=== PATIENT | female | born 1940 | race Caucasian/White ===

== ENCOUNTER 2024-11-12 15:17 | Day surgery (SDC) | payer MEDICARE ==
[2024-11-12] MEDS: IV FLUID CONTINUATION 1,000 ML IV ONE ×2 (15:35→16:31)
[2024-11-12] MEDS ORDERED: PROPOFOL 10 MG/ML 20 ML VIAL IV ONE (16:36)
--- NOTE | 2024-11-12 16:48 | P.PCN ---
Date of Procedure: 11/12/24 Procedure(s) Performed: BRIEF HISTORY: Patient is a 84-year-old, pleasant, white female scheduled for an upper endoscopy as a part of evaluation progressive dysphagia to solids for the last 1 month duration. She is not able to eat any solids for the last 1 week. She is in school for an upper endoscopy with a possible dilation today.. She lost 20 pounds in the last 1 month duration PROCEDURE PERFORMED: Esophagogastroduodenoscopy with biopsy. PREOPERATIVE DIAGNOSIS: Progressive dysphagia to solids and weight loss. IV sedation per anesthesia. PROCEDURE: After informed consent was obtained, the patient was brought into the endoscopy unit. IV sedation was administered by Anesthesia under continuous monitoring. Initially the Olympus GIF-140 video endoscope was inserted into the mouth. Esophagus intubated without any difficulty. It was gradually advanced into the distal esophagus. The GE junction appeared very tight and with gentle pressure I was able to advance the scope into the cardia of the stomach and immediately there was a 3 to 4 cm circumferential friable ulceration identified. Scope was then advanced into the distal stomach and duodenum and carefully examined. The bulb and the second part of the duodenum appeared normal. The scope at this time was withdrawn to the stomach, adequately insufflated with air, and upon careful examination, mucosa of the antrum, body, and the fundus appeared normal. The circumferential ulceration was located in the cardia of the stomach on retroflexion. The scope was then withdrawn into the esophagus. Multiple biopsies were done from the ulceration located in the cardia of the stomach. The GE junction was located at 39 cm from the incisors which appeared very tight. The esophagus appeared normal. There were no erosions or ulcerations seen and the patient tolerated the procedure well. IMPRESSION: 1. Large 4 cm circumferential ulceration involving the cardia of the stomach causing narrowing of the GE junction status post multiple biopsies to evaluate for malignancy. 2. Rest of the stomach and duodenum appeared normal. RECOMMENDATIONS: The findings of this examination were discussed with the patient as well as her family. She will follow-up with the biopsies aspiration to be seen in the office in 1 week..
[2024-11-12 18:08] LABS: Basophils # (A) 0.02 10*3/uL (0.00-0.10); Basophils % (A) 0.1 %; Eosinophils # (A) 0.03 10*3/uL (0.04-0.35); Eosinophils % (A) 0.2 %; HCT 36.3 % (37.2-46.3); HGB 12.5 g/dL (12.0-15.0); Lymphocytes # (A) 1.77 10*3/uL (0.90-5.00); Lymphocytes % (A) 12.4 %; MCHC 34.4 g/dL (32.0-37.0); MCV 87.3 fL (80.0-97.0); Mean Platelet Volume 10.4 fL (9.5-12.2); Monocytes # (A) 1.27 10*3/uL (0.20-1.00); Monocytes % (A) 8.9 %; Neutrophils # (A) 11.07 10*3/uL (1.80-7.70); Neutrophils % (A) 77.8 %; Platelet Count 307 10*3/uL (140-440); RBC 4.16 10*6/uL (4.10-5.20); RDW 14.5 % (11.5-14.5); WBC 14.24 10*3/uL (4.50-10.00)
[2024-11-12 18:22] LABS: ALT 13 U/L (4-34); AST 19 U/L (14-36); African American GFR (CKD) 30 (>60 ml/min/1.73 sqM); Albumin 3.2 g/dL (3.5-5.0); Alkaline Phosphatase 104 U/L (38-126); Anion Gap 5 mmol/L; Blood Urea Nitrogen 44 mg/dL (7-17); Calcium 9.1 mg/dL (8.4-10.2); Carbon Dioxide 36 mmol/L (22-30); Chloride 92 mmol/L (98-107); Glucose 120 mg/dL (74-99); Non-African American GFR(CKD) 26 (>60 ml/min/1.73 sqM); Potassium 3.3 mmol/L (3.5-5.1); Sodium 133 mmol/L (137-145); Total Protein 6.4 g/dL (6.3-8.2)
[2024-11-12] MEDS: LACTATED RINGERS 1,000 ML IV SCH (22:11)
--- NOTE | 2024-11-12 22:17 | P.CONS ---
History of Present Illness - Reason for Consult Consult date: 11/12/24 medical consultation, dysphagia and ectopy - Chief Complaint elective EGD. - History of Present Illness Claudette is a 84 YO F with a pmhx of primary htn, RA, gerd and hld. She presents to the hospital today for an elective EGD. She expresses that she has had dysphagia to solid foods for at least 1 month. She expresses she has lost at least 24 lbs over the past 2-3 months. She expresses that she has had on and off dysphasia and had seen GI/Dr. Dee outpatient. She had an EGD earlier today. EGD had shown a large 4 cm circumferential ulceration involving the cardia of the stomach causing narrowing of the GE junction with multiple biopsies. It appears that she was developing ectopy and was admitted to . she is currently seen in room 350. Most recent vs from 1941 show a temp of 98.4, hr of 100, respiratory rate of 18, bp of 100/56, she was 97% on room air. Labwork shows a wbc of 14.2, hgb of 12.5. platelet count of 307. cmp had shows a k of 3.3. mag of 1.9. albumin of 3.2 Review of Systems Pertinent positives and negatives as discussed in HPI, a complete review of systems was performed and all other systems are negative. Past Medical History Smoking Status: Former smoker Medications and Allergies Home Medications Medication Instructions Recorded Confirmed Type Citalopram Hydrobromide [CeleXA] 20 mg PO DAILY 11/12/24 11/12/24 History Hydroxychloroquine Sulfate 200 mg PO DAILY 11/12/24 11/12/24 History Irbesartan/Hydrochlorothiazide 1 tab PO DAILY 11/12/24 11/12/24 History [Irbesartan-Hctz 300-12.5 mg Tb] Mirtazapine 7.5 mg PO DAILY 11/12/24 11/12/24 History Pantoprazole [Protonix] 40 mg PO DAILY 11/12/24 11/12/24 History Rosuvastatin [Crestor] 1 tab PO DAILY 11/12/24 11/12/24 History Venlafaxine HCl [Effexor XR] 37.5 mg PO DAILY 11/12/24 11/12/24 History methIMAzole [Tapazole] 1 tab PO DAILY 11/12/24 11/12/24 History Allergies Allergy/AdvReac Type Severity Reaction Status Date / Time No Known Allergies Allergy Verified 11/12/24 15:36 Physical Exam Vitals: Vital Signs Temp Pulse Resp BP Pulse Ox 11/12/24 19:42 98.4 F 100 18 100/56 97 11/12/24 18:43 98.2 F 85 17 119/62 98 11/12/24 17:11 95 16 119/75 98 11/12/24 16:53 101 H 16 121/72 95 11/12/24 15:47 97.6 F 83 16 99/49 96 Intake and Output 11/12/24 11/12/24 11/12/24 06:59 14:59 22:59 Intake Total 300 Balance 300 Intake: IV 300 Other: # Voids 1 # Bowel Movements 1 Weight 0 g 46.6 kg General: non toxic, no distress, appears stated age, female, appears frail Derm: warm, dry Head: atraumatic, normocephalic, symmetric Eyes: EOMI, no lid lag, anicteric sclera, pupils equal round reactive to light ENT: Nose and ears atraumatic, no thrush, no pharyngeal erythema Neck: No thyromegaly, no cervical lymphadenopathy, trachea midline, supple Mouth: no lip lesion, mucus membranes moist Cardiovascular: S1S2 reg, no murmur Lungs: clear to ascultation bilatera Abdominal: soft, nontender to palpation, no guarding, no appreciable organomegaly, normal bowel sounds Ext: no gross muscle atrophy Neuro: moving all extremities spontanously Psych: Alert, oriented, appropriate affect Results CBC & Chem 7: 11/12/24 17:50 11/12/24 17:50 Labs: Abnormal Lab Results - Last 24 Hours (Table) 11/12/24 11/12/24 Range/Units 17:50 17:50 WBC 14.24 H (4.50-10.00) 10*3/uL Hct 36.3 L (37.2-46.3) % Immature Gran # 0.08 H (0.00-0.04) 10*3/uL Neutrophils # 11.07 H (1.80-7.70) 10*3/uL Monocytes # 1.27 H (0.20-1.00) 10*3/uL Eosinophils # 0.03 L (0.04-0.35) 10*3/uL Sodium 133 L (137-145) mmol/L Potassium 3.3 L (3.5-5.1) mmol/L Chloride 92 L (98-107) mmol/L Carbon Dioxide 36 H (22-30) mmol/L BUN 44 H (7-17) mg/dL Creatinine 1.75 H (0.52-1.04) mg/dL Glucose 120 H (74-99) mg/dL Albumin 3.2 L (3.5-5.0) g/dL Assessment and Plan Assessment: #) Unintentional weight loss with intermittent dysphagia. EGD showing large 4 cm circumferential ulceration involving the cardia of the stomach. f/u on biopsies. 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 ideally would like to check a ct abd pelvis with iv contrast however limited by renal function, see below. Trial of FLD to assess to see if she can tolerate diet. #) ?Acute kidney injury with cr of 1.75. no prior renal function on file. hold homd irbetartan and hctz for now. ivf with lr at 75 cc/hr. recheck renal function tomorrow #) Rheumatoid arthritis continue home hydroxychlorquine 200 mg daily #) Hyperthyroid dz. continue home methiamazole 5 mg daily however check tsh with freet4 as methimazole dosing may need to be decreased with weight loss. #) Ectopy, probably from electrolyte abnormalities. replace potassium. check nelson s level. #) Major depression continue home citalopram 20 mg daily, mirtazpine 7.5 mg daily, venlafaxine 37.5 mg daily #) GERD continue home pantoprazole 40 mg daily #) Hld continue home rosuvastatin 20 mg daily Thank you for allowing [facility] to take care of this patient. please do not hesitate to contact us if any further questions arise. Time with Patient: Greater than 30
[2024-11-12] MEDS: POTASSIUM CHLORIDE 10 MEQ in WATER FOR INJECTION 1 100ML.BAG IVPB SCH (22:26)
[2024-11-13] MEDS: LACTATED RINGERS 1,000 ML IV ONE (04:39)
[2024-11-13 07:04] LABS: Basophils # (A) 0.01 10*3/uL (0.00-0.10); Basophils % (A) 0.1 %; Eosinophils # (A) 0.06 10*3/uL (0.04-0.35); Eosinophils % (A) 0.6 %; HCT 33.5 % (37.2-46.3); HGB 11.1 g/dL (12.0-15.0); Lymphocytes # (A) 1.64 10*3/uL (0.90-5.00); Lymphocytes % (A) 17.2 %; MCH 29.9 pg (27.0-32.0); MCHC 33.1 g/dL (32.0-37.0); MCV 90.3 fL (80.0-97.0); Mean Platelet Volume 10.6 fL (9.5-12.2); Monocytes # (A) 0.89 10*3/uL (0.20-1.00); Monocytes % (A) 9.4 %; Neutrophils # (A) 6.86 10*3/uL (1.80-7.70); Neutrophils % (A) 72.2 %; Platelet Count 248 10*3/uL (140-440); RBC 3.71 10*6/uL (4.10-5.20); RDW 14.6 % (11.5-14.5); WBC 9.51 10*3/uL (4.50-10.00)
[2024-11-13 07:52] LABS: ALT 12 U/L (4-34); AST 19 U/L (14-36); African American GFR (CKD) 39 (>60 ml/min/1.73 sqM); Albumin 2.7 g/dL (3.5-5.0); Alkaline Phosphatase 98 U/L (38-126); Anion Gap 4 mmol/L; Blood Urea Nitrogen 36 mg/dL (7-17); Calcium 8.6 mg/dL (8.4-10.2); Carbon Dioxide 34 mmol/L (22-30); Chloride 96 mmol/L (98-107); Glucose 84 mg/dL (74-99); Non-African American GFR(CKD) 34 (>60 ml/min/1.73 sqM); Potassium 3.3 mmol/L (3.5-5.1); Sodium 134 mmol/L (137-145); Total Bilirubin 0.8 mg/dL (0.2-1.3); Total Protein 5.7 g/dL (6.3-8.2)
[2024-11-13] MEDS: HYDROXYCHLOROQUINE SULFATE 200 MG TAB PO SCH (08:51)
[2024-11-13] MEDS: ATORVASTATIN 40 MG TAB PO SCH (08:52)
[2024-11-13] MEDS: CITALOPRAM HYDROBROMIDE 20 MG TAB PO SCH (08:52)
[2024-11-13] MEDS: PANTOPRAZOLE 40 MG TABLET PO SCH (08:52)
[2024-11-13] MEDS: methIMAzole 5 MG TAB PO SCH (08:52)
[2024-11-13] MEDS: MIRTAZAPINE 15 MG TAB PO SCH (08:52)
[2024-11-13] MEDS: VENLAFAXINE HCL ER 37.5 MG CAP PO SCH (08:52)
[2024-11-13] MEDS: POTASSIUM CHLORIDE 20 MEQ in WATER FOR INJECTION 1 100ML.BAG IVPB STA (10:05)
--- NOTE | 2024-11-13 14:00 | CA ---
Transthoracic Echo Report Name: Claudette Metz Age: 84 Gender: F : 1940 Exam Date: 11/13/2024 11:10 Exam Location: [place] [facility] Ht (in): 62 Wt (lb): 103 Ordering Physician: Janice Madrigal DO Attending/Referring Phys: [id number], Kaitlin Marketing Support Manager Vane Barnes RDCS Procedure CPT: Indications: ectopy Cardiac Hx: Technical Quality: Good Contrast 1: Total Dose (mL): Contrast 2: Total Dose (mL): MEASUREMENTS (Male / Female) Normal Values 2D ECHO LV Diastolic Diameter PLAX 4.3 cm 4.2 - 5.9 / 3.9 - 5.3 cm LV Systolic Diameter PLAX 3.0 cm IVS Diastolic Thickness 1.1 cm 0.6 - 1.0 / 0.6 - 0.9 cm LVPW Diastolic Thickness 1.0 cm 0.6 - 1.0 / 0.6 - 0.9 cm LV Relative Wall Thickness 0.5 RV Internal Dim ED PLAX 4.0 cm LA Systolic Diameter LX 3.8 cm 3.0 - 4.0 / 2.7 - 3.8 cm LV Diastolic Volume MOD BP 65.7 cm??? 67 - 155 / 56 - 104 cm??? LV Systolic Volume MOD BP 28.0 cm??? - 58 / 19 - 49 cm??? LV Ejection Fraction MOD BP 57.4 % >= 55 % LV Cardiac Index MOD BP 1852.7 cm???/min???m??? LV Diastolic Volume MOD 4C 80.7 cm??? LV Systolic Volume MOD 4C 28.4 cm??? LV Ejection Fraction MOD 4C 64.8 % LV Cardiac Index MOD 4C 2571.2 cm???/min???m??? LV Diastolic Length 4C 7.0 cm LV Systolic Length 4C 5.9 cm LV Diastolic Volume MOD 2C 51.7 cm??? LV Systolic Volume MOD 2C 25.7 cm??? LV Ejection Fraction MOD 2C 50.2 % LV Cardiac Index MOD 2C 1273.7 cm???/min???m??? LV Diastolic Length 2C 6.7 cm LV Systolic Length 2C 6.4 cm LA Volume 48.5 cm??? 18 - 58 / 22 - 52 cm??? LA Volume Index 34.0 cm???/m??? 16 - 28 cm???/m??? M-MODE Aortic Root Diameter MM 3.5 cm DOPPLER AV Peak Velocity 125.1 cm/s AV Peak Gradient 6.3 mmHg MR Peak Velocity 543.3 cm/s MR Peak Gradient 118.1 mmHg Mitral E Point Velocity 73.3 cm/s Mitral A Point Velocity 0.2 cm/s Mitral E to A Ratio 429.3 TR Peak Velocity 276.3 cm/s TR Peak Gradient 30.5 mmHg Right Ventricular Systolic Press 35.0 mmHg FINDINGS Left Ventricle Left ventricular ejection fraction is estimated at 50-55 %. Mildly increased septal wall thickness. Left ventricular cavity size normal. Right Ventricle Mild right ventricular dilatation. Mild pulmonary hypertension. Right Atrium Normal right atrial size. No right atrial thrombus or mass seen. Left Atrium Moderately increased left atrial volume. No left atrial thrombus or mass present. Mitral Valve Structurally normal mitral valve. No evidence for mitral valve prolapse. No mitral stenosis. Mild mitral regurgitation. Aortic Valve Trileaflet aortic valve. No aortic valve stenosis or regurgitation. Tricuspid Valve Structurally normal tricuspid valve. Mild tricuspid regurgitation. Pulmonic Valve Structurally normal pulmonic valve. Mild pulmonic regurgitation. Pericardium No pericardial effusion. Aorta Normal size aortic root and proximal ascending aorta. CONCLUSIONS LVEF 55% No obvious regional wall motion abnormality Grade 1 diastolic dysfunction Mild RV dilatation. RVSP 35 mmHg Moderate left atrial dilatation Mild tricuspid regurgitation, mild mitral regurgitation Previewed by: Dr Murphy Vigil (Electronically Signed) Final Date: 13 November 2024 13:59
[2024-11-13 14:24] VITALS: BMI 19.0
--- NOTE | 2024-11-13 16:45 | P.PN ---
Subjective Progress Note Date: 11/13/24 Patient is a 84-year-old with HTN, RA, GERD, and HLD initially presenting for outpatient elective EGD due to dysphagia and weight loss. Subsequently developed ectopy and admitted to 3 S. Initial labs remarkable for sodium of 133, potassium of 3.3, and magnesium of 1.9. Creatinine 1.75 with unknown baseline. Patient seen and examined at bedside. Doing well. Denies chest pain, shortness of breath, lightheadedness, or dizziness. Has not been eating much. Does complain of significant burning in her upper abdomen. Vital signs reviewed General: [nontoxic], [no distress], [appears at stated age] Cardiovascular: [S1S2 reg], [no murmur] Lungs: [CTA bilateral], [no rhonchi, no rales] , [no accessory muscle use] Abdominal: [soft], [ nontender to palpation], [no guarding] Ext: [no gross muscle atrophy], [no edema b/l lower extremities], [no contractures] Neuro: [ CN II-XI grossly intact], [no focal neuro deficits] Psych: [Alert], [oriented], [appropriate affect] Assessment/Plan: Ectopy postoperatively after EGD Hypokalemia Hypomagnesemia -Replaced with 20 mill equivalents of potassium and potassium remains at 3.3. Administer another 20 mill equivalents. - Telemetry reviewed with frequent PVCs and PACs, ? wandering pacemaker -Case discussed with Dr. Vigil. Sinus arrhythmia likely secondary to hypokalemia and hypomagnesemia. -Echocardiogram ordered and reviewed with EF 55% and grade 1 diastolic dysfunction. Large gastric ulcer - Status post EGD 11/12. Awaiting biopsy results. -PPI Acute kidney injury with unknown baseline creatinine - Continue LR - Creatinine improvement by 0.3 Chronic conditions: Rheumatoid arthritis-hydroxychloroquine Hypothyroidism-on methimazole, TSH normal at 0.759 GERD HLD Imaging: As above Data Review: CBC remarkable for hemoglobin 11.1, CMP remarkable for potassium of 3.3, creatinine improved to 1.41, TSH normal at 0.759 Anticipated discharge date: home Anticipated discharge place: in AM This dictation was prepared using [employer] voice recognition software. Though every attempt is made to correct errors during dictation some may still exist. Active Medications Generic Name Dose Route Start Last Admin Trade Name Freq PRN Reason Stop Dose Admin Atorvastatin Calcium 40 mg 11/13/24 09:00 11/13/24 08:52 Atorvastatin 40 Mg Tab PO 40 mg DAILY HOMA Administration Citalopram Hydrobromide 20 mg 11/13/24 09:00 11/13/24 08:52 Citalopram Hydrobromide 20 Mg Tab PO 20 mg DAILY HOMA Administration Hydroxychloroquine Sulfate 200 mg 11/13/24 09:00 11/13/24 08:51 Hydroxychloroquine Sulfate 200 Mg Tab PO 200 mg DAILY HOMA Administration Lactated Ringer's 1,000 mls @ 75 mls/hr 11/12/24 21:45 11/13/24 11:16 Lactated Ringers IV 11/13/24 21:44 75 mls/hr .[id number] HOMA Administration Magnesium Sulfate/Dextrose 1 100 mls @ 100 mls/hr 11/13/24 18:00 gm/ IV Solution IVPB 11/13/24 18:59 ONCE ONE Methimazole 5 mg 11/13/24 09:00 11/13/24 08:52 Methimazole 5 Mg Tab PO 5 mg DAILY HOMA Administration Mirtazapine 7.5 mg 11/13/24 09:00 11/13/24 08:52 Mirtazapine 15 Mg Tab PO 7.5 mg DAILY HOMA Administration Pantoprazole Sodium 40 mg 11/13/24 09:00 11/13/24 08:52 Pantoprazole 40 Mg Tablet PO 40 mg DAILY HOMA Administration Venlafaxine HCl 37.5 mg 11/13/24 09:00 11/13/24 08:52 Venlafaxine Hcl Er 37.5 Mg Cap PO 37.5 mg DAILY HOMA Administration Objective - Vital Signs Vital signs: Vital Signs Temp 98.4 F 11/13/24 08:46 Pulse 73 11/13/24 08:46 Resp 17 11/13/24 08:46 BP 89/46 11/13/24 08:46 Pulse Ox 99 11/13/24 08:46 FiO2 Intake & Output 11/12/24 11/13/24 11/13/24 18:59 06:59 18:59 Intake Total 300 0 Output Total 1 Balance 300 -1 0 Weight 46.6 kg 47.1 kg Intake: IV 300 Oral 0 Output: Stool 1 Other: Voiding Method Toilet # Voids 1 1 # Bowel Movements 2 - Labs CBC & Chem 7: 11/13/24 06:03 11/13/24 14:58 Labs: Abnormal Lab Results - Last 24 Hours (Table) 11/12/24 11/12/24 11/13/24 Range/Units 17:50 17:50 06:03 WBC 14.24 H (4.50-10.00) 10*3/uL RBC (4.10-5.20) 10*6/uL Hgb (12.0-15.0) g/dL Hct 36.3 L (37.2-46.3) % Immature Gran # 0.08 H (0.00-0.04) 10*3/uL Neutrophils # 11.07 H (1.80-7.70) 10*3/uL Monocytes # 1.27 H (0.20-1.00) 10*3/uL Eosinophils # 0.03 L (0.04-0.35) 10*3/uL Sodium 133 L 134 L (137-145) mmol/L Potassium 3.3 L 3.3 L (3.5-5.1) mmol/L Chloride 92 L 96 L (98-107) mmol/L Carbon Dioxide 36 H 34 H (22-30) mmol/L BUN 44 H 36 H (7-17) mg/dL Creatinine 1.75 H 1.41 H (0.52-1.04) mg/dL Glucose 120 H (74-99) mg/dL Total Protein 5.7 L (6.3-8.2) g/dL Albumin 3.2 L 2.7 L (3.5-5.0) g/dL 11/13/24 Range/Units 06:03 WBC (4.50-10.00) 10*3/uL RBC 3.71 L (4.10-5.20) 10*6/uL Hgb 11.1 L (12.0-15.0) g/dL Hct 33.5 L (37.2-46.3) % Immature Gran # 0.05 H (0.00-0.04) 10*3/uL Neutrophils # (1.80-7.70) 10*3/uL Monocytes # (0.20-1.00) 10*3/uL Eosinophils # (0.04-0.35) 10*3/uL Sodium (137-145) mmol/L Potassium (3.5-5.1) mmol/L Chloride (98-107) mmol/L Carbon Dioxide (22-30) mmol/L BUN (7-17) mg/dL Creatinine (0.52-1.04) mg/dL Glucose (74-99) mg/dL Total Protein (6.3-8.2) g/dL Albumin (3.5-5.0) g/dL
[2024-11-13] MEDS: MAGNESIUM SULFATE-D5W PMX 1 GM in DEXTROSE/WATER 1 100ML.BAG IVPB ONE ×2 (17:09→17:14)
[2024-11-13] MEDS: POTASSIUM BICARBONATE/CIT AC 20 MEQ TABLET.EFF PO ONE ×2 (17:14→17:29)
--- NOTE | 2024-11-13 23:06 | P.CRDCN ---
History of Present Illness Consult date: 11/13/24 History of present illness: HPI: The patient is an 84-year-old female with a history of hypertension, rheumatoid arthritis, GERD, and dyslipidemia. She presented on 10/2024 for an elective EGD due to one month of dysphagia, 20-pound weight loss over the last 1-2 months, and gastric discomfort. The endoscopy revealed a large 4-centimeter circumferential ulcer involving the cardiac region of the stomach, causing narrowing of the GE junction, with multiple biopsies taken. She was noted to be slightly dehydrated due to poor oral intake. Cardiology was consulted irregular cardiac rhythm. Pertinent Vitals: - BP: 117/70 , - HR: 72 bpm Pertinent cardiac Labs: - Admission: Hb 12.5, WBC 14, Plt 307, Na 133, K 3.3, BUN 44, Transformer Stock Clerk 1.75, Mg 1.9 , TSH 0.7 - Post fluid resuscitation: K 3.4, Transformer Stock Clerk 1.4, Pertinent cardiac testing: - Echo: 10/2024: EF 55%, no regional wall motion abnormalities, grade 1 diastolic dysfunction, mild RV dilation with RVSP of 35 mmHg, moderate left atrial dilation. - EK10/2024: Sinus rhythm with intermittent PACs. - Telemetry: Frequent PACs with intermittent blocked PACs, irregular RR intervals, not appearing as atrial fibrillation or AV gavino block. REVIEW OF SYSTEMS: 14 point review of system is negative except what is mentioned above in HPI. PHYSICAL EXAMINATION: Cachexic Neck: Brisk carotid upstroke, no jugular venous distention. Lungs: Clear to auscultation. Heart: Regular rate and rhythm, S1-S2, no murmur or rub. Abdomen: Soft nontender, positive bowel sounds. Extremities: No edema, intact distal pulses. Neuro: Alert, oriented, no focal deficits. Detailed neuro exam was not performed. ASSESSMENT: # Irregular rhythm due to frequent conducted and nonconducted PACs. No evidence of A-fib or AV gavino block at this time. # Dehydration with hypokalemia and hypomagnesemia # Dehydration and poor oral intake due to dysphagia # Large gastric ulcer with narrowing of GE junction # Significant unintentional weight loss # Failure to thrive PLAN: # Replace potassium to goal level of 4 # Replace magnesium with 1 gram, 3 doses; despite current magnesium level of 1.9, intracellular stores may be depleted # Continue to monitor telemetry for any significant arrhythmias # If no evidence of arrhythmias by tomorrow, blood pressure kidney function electrolytes are within normal limits, patient can be cleared from cardiovascul ar standpoint. Past Medical History Past Medical History: GERD/Reflux, Hyperlipidemia, Hypertension, Rheumatoid Arthritis (RA), Thyroid Disorder Additional Past Medical History / Comment(s): anxeity History of Any Multi-Drug Resistant Organisms: C-DIFF Date of last positivie culture/infection: 2020 MDRO Source:: stool Past Surgical History: Orthopedic Surgery Additional Past Surgical History / Comment(s): bilateral hip replacement, bilateral knees replacement, Left shoulder replaced. EGD 11/12/24 Past Anesthesia/Blood Transfusion Reactions: No Reported Reaction Past Psychological History: Anxiety, Depression Smoking Status: Former smoker Past Alcohol Use History: None Reported Past Drug Use History: None Reported Additional Drug Use History / Comment(s): quit smoking 42 years ago Medications and Allergies Home Medications Medication Instructions Recorded Confirmed Type Irbesartan/Hydrochlorothiazide 1 tab PO DAILY 11/12/24 11/12/24 History [Irbesartan-Hctz 300-12.5 mg Tb] Pantoprazole [Protonix] 40 mg PO DAILY 11/12/24 11/12/24 History RX: Citalopram Hydrobromide 20 mg PO DAILY 11/12/24 11/12/24 History [CeleXA] RX: Hydroxychloroquine Sulfate 200 mg PO DAILY 11/12/24 11/12/24 History RX: Mirtazapine 7.5 mg PO DAILY 11/12/24 11/12/24 History RX: Rosuvastatin [Crestor] 1 tab PO DAILY 11/12/24 11/12/24 History RX: methIMAzole [Tapazole] 1 tab PO DAILY 11/12/24 11/12/24 History Venlafaxine HCl [Effexor XR] 37.5 mg PO DAILY 11/12/24 11/12/24 History Allergies Allergy/AdvReac Type Severity Reaction Status Date / Time No Known Allergies Allergy Verified 11/12/24 15:36 Physical Exam Vitals: Vital Signs Temp Pulse Resp BP Pulse Ox 11/13/24 20:00 98.1 F 78 16 105/74 97 11/13/24 15:18 98.2 F 65 16 109/56 100 11/13/24 11:15 72 16 117/70 98 11/13/24 08:46 98.4 F 73 17 122/75 99 11/13/24 05:35 60 105/57 94 L 11/13/24 04:21 73 18 86/47 97 11/12/24 23:51 68 18 101/58 97 Intake and Output 11/13/24 11/13/24 11/14/24 14:59 22:59 06:59 Intake Total 0 120 Balance 0 120 Intake: Oral 0 120 Other: Voiding Method Toilet Toilet # Voids 1 1 # Bowel Movements 1 Weight 47.1 kg Results 11/13/24 06:03 11/13/24 14:58 Cardiac Enzymes 11/13/24 Range/Units 06:03 AST 19 (14-36) U/L CBC 11/13/24 Range/Units 06:03 WBC 9.51 (4.50-10.00) 10*3/uL RBC 3.71 L (4.10-5.20) 10*6/uL Hgb 11.1 L (12.0-15.0) g/dL Hct 33.5 L (37.2-46.3) % Plt Count 248 (140-440) 10*3/uL Comprehensive Metabolic Panel 11/13/24 11/13/24 Range/Units 06:03 14:58 Sodium 134 L (137-145) mmol/L Potassium 3.3 L 3.4 L (3.5-5.1) mmol/L Chloride 96 L (98-107) mmol/L Carbon Dioxide 34 H (22-30) mmol/L BUN 36 H (7-17) mg/dL Creatinine 1.41 H (0.52-1.04) mg/dL Glucose 84 (74-99) mg/dL Calcium 8.6 (8.4-10.2) mg/dL AST 19 (14-36) U/L ALT 12 (4-34) U/L Alkaline Phosphatase 98 (38-126) U/L Total Protein 5.7 L (6.3-8.2) g/dL Albumin 2.7 L (3.5-5.0) g/dL Current Medications Generic Name Dose Route Start Last Admin Trade Name Freq PRN Reason Stop Dose Admin Atorvastatin Calcium 20 mg 11/14/24 09:00 Atorvastatin 20 Mg Tab PO DAILY HOMA Citalopram Hydrobromide 20 mg 11/13/24 09:00 11/13/24 08:52 Citalopram Hydrobromide 20 Mg Tab PO 20 mg DAILY HOMA Administration Hydroxychloroquine Sulfate 200 mg 11/13/24 09:00 11/13/24 08:51 Hydroxychloroquine Sulfate 200 Mg Tab PO 200 mg DAILY HOMA Administration Methimazole 5 mg 11/13/24 09:00 11/13/24 08:52 Methimazole 5 Mg Tab PO 5 mg DAILY HOMA Administration Mirtazapine 7.5 mg 11/13/24 09:00 11/13/24 08:52 Mirtazapine 15 Mg Tab PO 7.5 mg DAILY HOMA Administration Pantoprazole Sodium 40 mg 11/13/24 09:00 11/13/24 08:52 Pantoprazole 40 Mg Tablet PO 40 mg DAILY HOMA Administration Venlafaxine HCl 37.5 mg 11/13/24 09:00 11/13/24 08:52 Venlafaxine Hcl Er 37.5 Mg Cap PO 37.5 mg DAILY HOMA Administration Intake and Output 11/13/24 11/13/24 11/14/24 14:59 22:59 06:59 Intake Total 0 120 Balance 0 120 Intake: Oral 0 120 Other: Voiding Method Toilet Toilet # Voids 1 1 # Bowel Movements 1 Weight 47.1 kg Patient Weight 11/14/24 06:59 Weight 47.1 kg 11/13/24 06:03 11/13/24 14:58
[2024-11-14 04:44] VITALS: RESP 16
[2024-11-14 06:01] LABS: HCT 34.3 % (37.2-46.3); HGB 11.4 g/dL (12.0-15.0); MCH 29.7 pg (27.0-32.0); MCHC 33.2 g/dL (32.0-37.0); MCV 89.3 fL (80.0-97.0); Mean Platelet Volume 10.3 fL (9.5-12.2); Platelet Count 250 10*3/uL (140-440); RBC 3.84 10*6/uL (4.10-5.20); RDW 14.6 % (11.5-14.5); WBC 7.89 10*3/uL (4.50-10.00)
[2024-11-14 06:10] LABS: African American GFR (CKD) 49 (>60 ml/min/1.73 sqM); Anion Gap 4 mmol/L; Blood Urea Nitrogen 23 mg/dL (7-17); Calcium 8.8 mg/dL (8.4-10.2); Carbon Dioxide 35 mmol/L (22-30); Chloride 95 mmol/L (98-107); Glucose 90 mg/dL (74-99); Magnesium 1.9 mg/dL (1.6-2.3); Non-African American GFR(CKD) 43 (>60 ml/min/1.73 sqM); Phosphorus 1.9 mg/dL (2.5-4.5); Sodium 134 mmol/L (137-145)
[2024-11-14 08:30] VITALS: TEMP 98.4
[2024-11-14] MEDS: METOPROLOL TARTRATE 12.5 MG TAB PO SCH (08:34)
[2024-11-14] MEDS: ATORVASTATIN 20 MG TAB PO SCH (08:34)
[2024-11-14] MEDS: POTAS-SOD-PHOS 280-160-250 MG 1 EACH PACKET PO SCH (09:28)
--- NOTE | 2024-11-14 09:39 | P.PN ---
Subjective Progress Note Date: 11/14/24 HPI: The patient is an 84-year-old female with a history of hypertension, rheumatoid arthritis, GERD, and dyslipidemia. She presented on 10/2024 for an elective EGD due to one month of dysphagia, 20-pound weight loss over the last 1-2 months, and gastric discomfort. The endoscopy revealed a large 4-centimeter circumferential ulcer involving the cardiac region of the stomach, causing narrowing of the GE junction, with multiple biopsies taken. She was noted to be slightly dehydrated due to poor oral intake. Cardiology was consulted irregular cardiac rhythm. Pertinent Vitals: - BP: 117/70 , - HR: 72 bpm Pertinent cardiac Labs: - Admission: Hb 12.5, WBC 14, Plt 307, Na 133, K 3.3, BUN 44, Case Consultant 1.75, Mg 1.9 , TSH 0.7 - Post fluid resuscitation: K 3.4, Case Consultant 1.4, Pertinent cardiac testing: - Echo: 10/2024: EF 55%, no regional wall motion abnormalities, grade 1 diastolic dysfunction, mild RV dilation with RVSP of 35 mmHg, moderate left atrial dilation. - EK10/2024: Sinus rhythm with intermittent PACs. - Telemetry: Frequent PACs with intermittent blocked PACs, irregular RR intervals, not appearing as atrial fibrillation or AV gavino block. 11/14 Patient seen and examined on the cardiac stepdown unit. No complaints of chest pain or chest pressure no palpitations. Blood pressure 122/78, heart rate in the 70s and 80s, pulse ox 95% on room air. Repeat blood work reveals improvement of her creatinine to 1.17, potassium 4.0, hemoglobin 11.4. Patient has had no arrhythmias on telemetry. Patient is his sinus rhythm with PACs. PHYSICAL EXAMINATION: Cachexic Neck: Brisk carotid upstroke, no jugular venous distention. Lungs: Clear to auscultation. Heart: Regular rate and rhythm, S1-S2, no murmur or rub. Abdomen: Soft nontender, positive bowel sounds. Extremities: No edema, intact distal pulses. Neuro: Alert, oriented, no focal deficits. Detailed neuro exam was not performed. ASSESSMENT: # Irregular rhythm due to frequent conducted and nonconducted PACs. No evidence of A-fib or AV gavino block at this time. # Dehydration with hypokalemia and hypomagnesemia # Dehydration and poor oral intake due to dysphagia # Large gastric ulcer with narrowing of GE junction # Significant unintentional weight loss # Failure to thrive PLAN: Start patient on Lopressor 12.5 mg twice daily Patient is cleared for discharge from cardiology and may follow-up in the office with Dr. Vigil in 1 week. Nurse practitioner note has been reviewed, I agree with documented findings and plan of care. Patient was seen and examined. Objective - Vital Signs Vital signs: Vital Signs Temp 97.8 F 11/14/24 04:00 Pulse 71 11/14/24 04:00 Resp 16 11/14/24 04:00 BP 133/73 11/14/24 04:00 Pulse Ox 96 11/14/24 04:00 FiO2 Intake & Output 11/13/24 11/14/24 11/14/24 18:59 06:59 18:59 Intake Total 120 Balance 120 Weight 47.1 kg 51 kg Intake: Oral 120 Other: Voiding Method Toilet Toilet # Voids 1 2 # Bowel Movements 1 - Labs CBC & Chem 7: 11/14/24 05:44 11/14/24 05:44 Labs: Abnormal Lab Results - Last 24 Hours (Table) 11/13/24 11/13/24 11/14/24 Range/Units 06:03 14:58 05:44 RBC 3.84 L (4.10-5.20) 10*6/uL Hgb 11.4 L (12.0-15.0) g/dL Hct 34.3 L (37.2-46.3) % Sodium 134 L (137-145) mmol/L Potassium 3.3 L 3.4 L (3.5-5.1) mmol/L Chloride 96 L (98-107) mmol/L Carbon Dioxide 34 H (22-30) mmol/L BUN 36 H (7-17) mg/dL Creatinine 1.41 H (0.52-1.04) mg/dL Phosphorus (2.5-4.5) mg/dL Total Protein 5.7 L (6.3-8.2) g/dL Albumin 2.7 L (3.5-5.0) g/dL 11/14/24 Range/Units 05:44 RBC (4.10-5.20) 10*6/uL Hgb (12.0-15.0) g/dL Hct (37.2-46.3) % Sodium 134 L (137-145) mmol/L Potassium (3.5-5.1) mmol/L Chloride 95 L (98-107) mmol/L Carbon Dioxide 35 H (22-30) mmol/L BUN 23 H (7-17) mg/dL Creatinine 1.17 H (0.52-1.04) mg/dL Phosphorus 1.9 L (2.5-4.5) mg/dL Total Protein (6.3-8.2) g/dL Albumin (3.5-5.0) g/dL
[2024-11-14] MEDS: MAGNESIUM SULFATE-D5W PMX 1 GM in DEXTROSE/WATER 1 100ML.BAG IVPB SCH (12:00)
--- NOTE | 2024-11-14 12:22 | P.DS ---
Providers Expected date of discharge: 11/14/24 Attending physician: Stephany Eaton Consults: 11/12/24 17:43 Consult Physician Stat Consulting Provider: Carlos Kohli Consult Reason/Comments: ARRHYTHMIA, POOR ORAL INTAKE POST EGD Do you want consulting provider notified?: Yes 11/13/24 08:50 Consult Physician Routine Consulting Provider: Gatito Ellis Consult Reason/Comments: ectopy Do you want consulting provider notified?: Yes Primary care physician: Delfino Simms MD Hospital Course: Discharge Diagnosis: Sinus arrhythmia VINICIO, Dehydration Hypokalemia Hypomagnesemia Large gastric ulcer Rheumatoid arthritis-hydroxychloroquine Hypothyroidism-on methimazole, TSH normal at 0.759 GERD HLD Hospital Course: Patient is a 84-year-old with HTN, RA, GERD, and HLD initially presenting for outpatient elective EGD due to dysphagia and weight loss. Subsequently developed ectopy and admitted to 3 . Initial labs remarkable for sodium of 133, potassium of 3.3, and magnesium of 1.9. Creatinine 1.75 with unknown baseline. Seen by cardiology and diagnosed with sinus arrhythmia due to nonconducted PACs. No evidence of A-fib or AV gavino block. Underwent potassium and magnesium replacement. Had improvement in arrhythmia. Underwent echocardiogram which demonstrated an EF of 55% with grade 1 diastolic dysfunction and no regional wall motion abnormalities. After electrolytes had improved and frequency of arrhythmia had decreased member was determined stable for discharge home. Follow-up: BMP and magnesium level in 3 days, follow-up with Dr. Simms and Dr. Vigil. Follow-up with Dr. Eaton in 1 week for results. Continue Protonix. Patient seen and examined at bedside. No chest pain, No lightheadedness, No nausea. Vital signs reviewed and stable. General: Nontoxic, no distress, appears at stated age Cardiovascular: S1S2 reg, no murmur, positive posterior tibial pulse bilateral, Lungs: CTA bilateral, no rhonchi, no rales, no accessory muscle use Abdominal: Soft, nontender to palpation, no guarding, no appreciable organomegaly Ext: No gross muscle atrophy, no edema b/l lower extremities, no contractures Neuro: CN II-XI grossly intact, no focal neuro deficits Psych: Alert, oriented, appropriate affect A total of 25 minutes of time were spent preparing this complex discharge summary. Patient was discharged on 11/14/24. This dictation was prepared using [employer] voice recognition software. Though every attempt is made to correct errors during dictation some may still exist. Plan - Discharge Summary Discharge Rx Participant: No New Discharge Prescriptions: New Metoprolol Tartrate [Lopressor] 12.5 mg PO BID #60 tab Continue Mirtazapine 7.5 mg PO DAILY methIMAzole [Tapazole] 1 tab PO DAILY Hydroxychloroquine Sulfate 200 mg PO DAILY Citalopram Hydrobromide [CeleXA] 20 mg PO DAILY Venlafaxine HCl [Effexor XR] 37.5 mg PO DAILY Rosuvastatin [Crestor] 1 tab PO DAILY Pantoprazole [Protonix] 40 mg PO DAILY Discontinued Irbesartan/Hydrochlorothiazide [Irbesartan-Hctz 300-12.5 mg Tb] 1 tab PO DAILY Discharge Medication List Citalopram Hydrobromide [CeleXA] 20 mg PO DAILY 11/12/24 [History] Hydroxychloroquine Sulfate 200 mg PO DAILY 11/12/24 [History] Mirtazapine 7.5 mg PO DAILY 11/12/24 [History] Pantoprazole [Protonix] 40 mg PO DAILY 11/12/24 [History] Rosuvastatin [Crestor] 1 tab PO DAILY 11/12/24 [History] Venlafaxine HCl [Effexor XR] 37.5 mg PO DAILY 11/12/24 [History] methIMAzole [Tapazole] 1 tab PO DAILY 11/12/24 [History] Metoprolol Tartrate [Lopressor] 12.5 mg PO BID #60 tab 11/14/24 [Rx] Follow up Appointment(s)/Referral(s): Murphy Vigil MD [Medical Doctor] - 1 Week (Please call to schedule appointment as office is closed) Delfino Simms MD [Primary Care Provider] - 1 Week (Office is closed Please call to schedule appointment) Stephany Eaton MD [STAFF PHYSICIAN] - As Needed (Office is closed. Please call to schedule appointment) Ambulatory/Diagnostic Orders: Basic Metabolic Panel [LAB.AMB] Time Frame: 3 Days, Location: None Selected Magnesium [LAB.AMB] Time Frame: 3 Days, Location: None Selected Patient Instructions/Handouts: *Surgery [facility] - (Anesthesia) Discharge Instructions Outpatient Surgery, Peptic Ulcer (DC), Upper Endoscopy (DC) Activity/Diet/Wound Care/Special Instructions: REST TODAY, ENCOURAGE FLUIDS AT HOME Discharge Disposition: HOME SELF-CARE
[2024-11-14 12:29] VITALS: BP 131/81; PULSE 70
== END 2024-11-14 14:21 | disposition home or self-care (01) ==
LOC: ORWHC2ENDO 15:17 → 3SCARD 17:59 → ORWHC2ENDO 11-14 14:21
PROVIDERS: ATTEND Internal Medicine Gastroenterology
DX: K25.9 Gastric ulcer, unspecified as acute or chronic, without hemorrhage or perforation (principal); E03.9 Hypothyroidism, unspecified; E78.5 Hyperlipidemia, unspecified; E83.42 Hypomagnesemia; I08.1 Rheumatic disorders of both mitral and tricuspid valves; I10 Essential (primary) hypertension; K21.9 Gastro-esophageal reflux disease without esophagitis; M06.9 Rheumatoid arthritis, unspecified; F32.9 Major depressive disorder, single episode, unspecified; I49.8 Other specified cardiac arrhythmias; E87.6 Hypokalemia; N17.9 Acute kidney failure, unspecified; E86.0 Dehydration; Z87.891 Personal history of nicotine dependence; Z79.899 Other long term (current) drug therapy; Z95.0 Presence of cardiac pacemaker
CPT/HCPCS: 93306; 88305; 80053 ×2; 80048; 84443; 83735 ×2; 84100 ×2; 84132; 85025 ×2; 85027; 88342; 43239; J3480 ×3; J3475; J2704